=== PATIENT | female | born 1960 | race Caucasian/White ===

== ENCOUNTER 2017-04-13 06:29 | Day surgery (SDC) | payer BC ==
[~2017-04-13 06:29] MED LIST: Lactated Ringers 1,000 ML IV SCH; Sodium Chloride 0.9% 10 ML Syringe FLUSH PRN; Sodium Chloride 0.9% 2.5 ML Syringe FLUSH PRN; ceFAZolin 1 GM in Premix Bag 1 BAG IV ONE
[2017-04-13] MEDS ORDERED: Midazolam 1 MG/ML 2 ML SDV ONE (07:13)
[2017-04-13] MEDS ORDERED: fentaNYL 100 MCG/2 ML SDV ONE (07:13)
[2017-04-13] MEDS ORDERED: Propofol 200 MG/20 ML SDV ONE (07:13)
[2017-04-13] MEDS ORDERED: HYDROmorphone 2 MG/ML Syringe ONE (07:14)
[2017-04-13] MEDS ORDERED: Rocuronium 10 MG/ML 10 ML Syringe ONE (07:16)
[2017-04-13] MEDS ORDERED: Neostigmine Methylsulfate 1 MG/ML 5 ML Syringe ONE (07:16)
[2017-04-13] MEDS ORDERED: Ketorolac 30 MG/ML SDV ONE (07:16)
[2017-04-13] MEDS ORDERED: diphenhydrAMINE 50 MG/ML SDV ONE (07:16)
[2017-04-13] MEDS ORDERED: Lidocaine 2% 5 ML SDV ONE (07:16)
[2017-04-13] MEDS ORDERED: Ondansetron 4 MG/2 ML SDV ONE (07:16)
[2017-04-13] MEDS ORDERED: Bupivacaine 0.5% 30 ML SDV ONE (07:21)
--- NOTE | 2017-04-13 07:44 | PCM.PREANE ---
Preanesthetic Assessment - Anesthesia/Transfusion/Family Hx Anesthesia History: Prior Anesthesia Without Reaction Family History of Anesthesia Reaction: No Transfusion History: No Prior Transfusion(s) - Review of Systems General: No Symptoms Pulmonary: No Symptoms Cardiovascular: No Symptoms Gastrointestinal: Nausea Neurological: No Symptoms, Numbness (relates history of numbness both arms) Other: Reports: None - Physical Assessment NPO Status Date: 04/12/17 NPO Status Time: 22:00 O2 Sat by Pulse Oximetry: 98 Respiratory Rate: 14 Vital Signs: Last Vital Signs Temp 36.9 C 04/13/17 06:30 Pulse 64 04/13/17 06:30 Resp 14 04/13/17 06:30 BP 112/70 04/13/17 06:30 Pulse Ox 98 04/13/17 06:30 Height: 1.6 m Weight: 60.328 kg ASA Class: 2 Mental Status: Alert & Oriented x3 Airway Class: Mallampati = 1 Dentition: Reports: Normal Dentition Thyro-Mental Finger Breadths: 3 Mouth Opening Finger Breadths: 3 ROM/Head Extension: Full (arm numbness does not get worse with head extension) Lungs: Clear to Auscultation, Normal Respiratory Effort Cardiovascular: Regular Rate, Regular Rhythm - Allergies Allergies/Adverse Reactions: Allergies Allergy/AdvReac Type Severity Reaction Status Date / Time Penicillins Allergy Hives Verified 04/07/17 15:39 - Blood Blood Available: No - Anesthesia Plan Pre-Op Medication Ordered: None - Acknowledgements Anesthesia Type Planned: General Anesthesia Pt an Appropriate Candidate for the Planned Anesthesia: Yes Alternatives and Risks of Anesthesia Discussed w Pt/Guardian: Yes Pt/Guardian Understands and Agrees with Anesthesia Plan: Yes PreAnesthesia Questionnaire HEENT History: Reports: None Other HEENT History: wears contacts Cardiovascular History: Reports: None Respiratory History: Reports: Asthma Other Respiratory History: had asthma as a child [employer] History: Reports: None Musculoskeletal History: Reports: None Neurological History: Reports: None Psychiatric History: Reports: Anxiety, Depression Endocrine/Metabolic History: Reports: None Hematologic History: Reports: None Immunologic History: Reports: None Oncologic (Cancer) History: Reports: None Dermatologic History: Reports: None - Past Surgical History GI Surgical History: Reports: Colonoscopy Female Surgical History: Reports: Other (See Below) Other Female Surgeries/Procedures: Laparoscopy Musculoskeletal Surgical History: Reports: Arthroscopic Knee - SUBSTANCE USE Smoking Status *Q: Never Smoker Tobacco Use Within Last Twelve Months: No Recreational Drug Use History: No - HOME MEDS Home Medications: Home Meds Desvenlafaxine [Pristiq] 100 mg PO DAILY 04/16/15 [History] - CURRENT (IN HOUSE) MEDS Current Meds: Current Medications Lactated Ringer's (Ringers, Lactated) 1,000 mls @ 125 mls/hr IV ASDIRECTED YUSEF Last Admin: 04/13/17 06:54 Dose: 125 mls/hr Sodium Chloride (Saline Flush) 10 ml FLUSH ASDIRECTED PRN PRN Reason: Keep Vein Open Sodium Chloride (Saline Flush) 2.5 ml FLUSH ASDIRECTED PRN PRN Reason: Keep Vein Open Discontinued Medications Bupivacaine HCl (Marcaine 0.5%) Confirm Administered Dose 30 ml .ROUTE .STK-MED ONE Stop: 04/13/17 07:22 Diphenhydramine HCl (Benadryl) Confirm Administered Dose 50 mg .ROUTE .STK-MED ONE Stop: 04/13/17 07:17 Fentanyl (Sublimaze) Confirm Administered Dose 100 mcg .ROUTE .STK-MED ONE Stop: 04/13/17 07:14 Glycopyrrolate () Confirm Administered Dose 1 mg .ROUTE .STK-MED ONE Stop: 04/13/17 07:17 Hydromorphone HCl (Dilaudid) Confirm Administered Dose 2 mg .ROUTE .STK-MED ONE Stop: 04/13/17 07:15 Cefazolin Sodium/Dextrose 1 gm (/ Premix) 50 mls @ 100 mls/hr IV ONETIME ONE Stop: 04/12/17 13:05 Ketorolac Tromethamine (Toradol) Confirm Administered Dose 30 mg .ROUTE .STK- MED ONE Stop: 04/13/17 07:17 Lidocaine (Xylocaine-Mpf 2%) Confirm Administered Dose 5 ml .ROUTE .STK-MED ONE Stop: 04/13/17 07:17 Midazolam HCl (Versed 1 Mg/Ml) Confirm Administered Dose 2 mg .ROUTE .STK-MED ONE Stop: 04/13/17 07:14 Neostigmine Methylsulfate (Neostigmine) Confirm Administered Dose 5 mg .ROUTE .STK-MED ONE Stop: 04/13/17 07:17 Ondansetron HCl (Zofran) Confirm Administered Dose 4 mg .ROUTE .STK-MED ONE Stop: 04/13/17 07:17 Propofol (Diprivan 20 Ml) Confirm Administered Dose 200 mg .ROUTE .STK-MED ONE Stop: 04/13/17 07:14 Rocuronium [place] (Zemuron) Confirm Administered Dose 100 mg .ROUTE .STK-MED ONE Stop: 04/13/17 07:17
[2017-04-13] MEDS ORDERED: ceFAZolin 1 GM Vial ONE (08:06)
[2017-04-13] MEDS ORDERED: Metoclopramide 10 MG/2 ML SDV ONE (08:10)
[2017-04-13] MEDS ORDERED: fentaNYL 100 MCG/2 ML SDV IVPUSH PRN (08:17)
--- NOTE | 2017-04-13 09:19 | PCM.OPNOTE ---
- General Post-Op/Procedure Note Date of Surgery/Procedure: 04/13/17 Operative Procedure(s): Laparoscopic cholecystectomy Findings: Normal appearing gallbladder Pre Op Diagnosis: Biliary dyskinesia Post-Op Diagnosis: Biliary dyskinesia Anesthesia Technique: General ET Tube Primary Surgeon: Keyla Workman Fluid Replacement, Intraop: 1,500 Output, Urine Amount: 50 EBL in mLs: 10 Condition: Good
--- NOTE | 2017-04-13 09:34 | PCM.POSTAN ---
POST ANESTHESIA ASSESSMENT - MENTAL STATUS Mental Status: Alert, Oriented - RESPIRATORY Respiratory Status: Respiratory Rate WNL, Airway Patent, O2 Saturation Stable - CARDIOVASCULAR CV Status: Pulse Rate WNL, Blood Pressure Stable - GASTROINTESTINAL GI Status: No Symptoms - POST OP HYDRATION Hydration Status: Adequate & Stable
--- NOTE | 2017-04-13 10:16 | OR ---
SURGEON: AGUILAR TOLEDO MD DATE OF PROCEDURE: 04/13/2017 PREOPERATIVE DIAGNOSIS: Biliary dyskinesia. POSTOPERATIVE DIAGNOSIS: Biliary dyskinesia. PROCEDURE PERFORMED: Laparoscopic cholecystectomy. ANESTHESIA: General endotracheal anesthesia. ESTIMATED BLOOD LOSS: 10 mL. FLUIDS: 1500 mL of crystalloid. URINE OUTPUT: 50 mL. FINDINGS: Normal-appearing gallbladder. COMPLICATIONS: None. INDICATIONS: The patient is a 56-year-old female, who recently had a HIDA scan performed that showed a biliary ejection fraction of 0%. This is consistent with biliary dyskinesia. Given these findings, the patient would like to undergo removal of her gallbladder. We discussed laparoscopic and open approaches. Should I be unable to perform safely laparoscopically, I will convert to open. The patient and I discussed the expected perioperative course, and the risks including bleeding, infection, or damage to surrounding structures. The patient verbalized understanding and wishes to proceed. PROCEDURE IN DETAIL: The patient was brought to the OR and placed on the OR table in supine position. A time-out was completed verifying the patient's name, age, date of , allergies, and procedure to be performed. General endotracheal anesthesia was induced. The left arm was tucked to the patient's side and a Devries catheter was placed. The abdomen was prepped and draped in usual standard fashion. The infraumbilical fold was anesthetized with 0.5% Marcaine plain. An incision was made along the infraumbilical fold using an #11 blade. Cautery was used to dissect down to the level of subcutaneous fat. S retractors were used to dissect bluntly down to the level of the fascia. The fascia was elevated with Shahram's and incised sharply with the [place] scissors and 0 Vicryl sutures were placed on either side of the fascia and a 12 mm trocar placed into the abdomen. The abdomen was insufflated and a 5 mm 30-degree scope was inserted into the belly. I inspected the area underneath my initial incision and no damage to surrounding structures were noted. Three 5 mm trocars were placed under direct visualization in the following locations; one in the epigastric area, one in the right lateral flank, and one along the right subcostal margin along the midclavicular line. The patient was placed into reverse Trendelenburg position and airplaned slightly to the left. The dome of the gallbladder was grasped with an atraumatic grasper through the right lateral flank port and lifted above the dome of the liver. This exposed the infundibulum. There were no adhesions or attachments to any surrounding structures. The infundibulum was grasped with an atraumatic grasper and retracted to the right and inferior. [place] dissector and right angle were used to dissect out the cystic duct and artery. Once my critical view was achieved, I doubly clipped and ligated the cystic duct and artery. The gallbladder was then removed from the gallbladder fossa using electrocautery. It was placed in an EndoCatch bag and removed through the periumbilical port site. The 12 mm port was re-introduced into the abdomen and inspected the area for hemostasis. The clips appeared to be in good position with no leakage of bile and the operative field was dry. The 5 mm trocars were then removed under direct visualization and the abdomen allowed to desufflate. The 12 mm trocar was removed as well and the 0 Vicryl stitches placed before were tied to effectively close the fascia. The infraumbilical port site was closed with interrupted 3-0 Vicryl in the subcutaneous fat and a running 4-0 Monocryl suture in the subcuticular space. The 5 mm trocar sites were closed with interrupted 4-0 Monocryl. Steri-Strips and sterile dressings were applied. The patient tolerated the procedure well and was taken to PACU in stable condition. SHA RUBY /[id number]
--- NOTE | 2017-04-13 11:08 | PCM48HPAN ---
Post Anesthesia Note - EVALUATION WITHIN 48HRS OF ANESTHETIC Vital Signs in Normal Range: Yes Patient Participated in Evaluation: Yes Respiratory Function Stable: Yes Airway Patent: Yes Cardiovascular Function Stable: Yes Hydration Status Stable: Yes Pain Control Satisfactory: Yes (she can feel incisions now - no pain) Nausea and Vomiting Control Satisfactory: Yes Mental Status Recovered: Yes - COMMENTS/OBSERVATIONS Free Text/Narrative:: c/o cotton mouth but tolerable
[2017-04-13 12:25] VITALS: BP 115/72
== END 2017-04-13 11:30 | disposition home or self-care (01) ==
LOC: MW.SDS 06:29
PROVIDERS: ATTEND Surgery
DX: K81.1 Chronic cholecystitis (principal); F41.9 Anxiety disorder, unspecified; F32.9 Major depressive disorder, single episode, unspecified; M77.32 Calcaneal spur, left foot; M22.41 Chondromalacia patellae, right knee; M19.049 Primary osteoarthritis, unspecified hand; K59.00 Constipation, unspecified; M50.30 Other cervical disc degeneration, unspecified cervical region; M75.41 Impingement syndrome of right shoulder; M72.2 Plantar fascial fibromatosis; M77.9 Enthesopathy, unspecified; Q66.7 Congenital pes cavus; Z88.0 Allergy status to penicillin; Z79.899 Other long term (current) drug therapy; Z98.890 Other specified postprocedural states
CPT/HCPCS: 47562; 88304; J0690; J1170; J1200; J1885; J2250; J2405; J2765; J3010; J7120; 00790; J2704

== ENCOUNTER 2023-10-04 07:54 | Day surgery (SDC) | payer OTHER ==
[~2023-10-04 07:54] MED LIST changes: -Lactated Ringers 1,000 ML IV SCH; +Sodium Chloride 0.9% 20 ML SDV IV PRN; -ceFAZolin 1 GM in Premix Bag 1 BAG IV ONE; +propofoL 50 ML ONE
[2023-10-04] MEDS: Lactated Ringers 1,000 ML IV SCH (08:24)
[2023-10-04 12:21] VITALS: BP 100/50; PULSE 66
== END 2023-10-04 10:12 | disposition home or self-care (01) ==
LOC: MW.SDS 07:54
PROVIDERS: ATTEND Surgery
DX: Z12.11 Encounter for screening for malignant neoplasm of colon (principal); Z86.010 Personal history of colon polyps; F32.A Depression, unspecified; J45.909 Unspecified asthma, uncomplicated; K21.9 Gastro-esophageal reflux disease without esophagitis; E78.00 Pure hypercholesterolemia, unspecified; Z79.899 Other long term (current) drug therapy; Z88.0 Allergy status to penicillin
CPT/HCPCS: 45378; J2704; J7120